=== PATIENT | male | born 1990 | race Caucasian/White ===

== ENCOUNTER 2022-05-13 12:00 | Outpatient (CLI) | payer BC, SELFPAY ==
[2022-05-13 19:23] LABS: Chloride* 105 mmol/L (96-114)
[2022-05-13 19:24] LABS: Potassium* 4.4 mmol/L (3.6-5.1); Sodium* 139 mmol/L (135-149)
[2022-05-13 19:26] LABS: Creatinine* 0.9 mg/dL (0.5-1.5); Estimated Glomerular Filt Rate 116 ml/min
[2022-05-13 19:27] LABS: Blood Urea Nitrogen* 18 mg/dL (5-24); Carbon Dioxide* 27 mmol/L (20-32); Glucose* 102 mg/dL (60-115)
[2022-05-13 19:28] LABS: Calcium* 9.4 mg/dL (8.4-10.6)
== END 2022-05-13 12:01 | disposition home or self-care (01) ==
PROVIDERS: PCP Family Medicine; Visit Provider Family Medicine
DX: R53.83 Other fatigue (principal); F90.9 Attention-deficit hyperactivity disorder, unspecified type
CPT/HCPCS: 80048; 84443

== ENCOUNTER 2024-05-01 10:21 | Outpatient (CLI) | payer BC, SELFPAY | END 2024-05-01 10:22 | disposition home or self-care (01) | PROVIDERS: PCP Family Medicine; Visit Provider Family Medicine | DX: Z13.220 Encounter for screening for lipoid disorders (principal); Z13.228 Encounter for screening for other metabolic disorders | CPT/HCPCS: 80048; 80061 ==